=== PATIENT | female | born 1990 | race Caucasian/White ===

== ENCOUNTER 2017-12-09 15:14 | Emergency (ER) | payer BC, OTHER ==
[2017-12-09 15:29] VITALS: BP 124/67
--- NOTE | 2017-12-09 19:24 | ER Document Report ---
ED General - General Chief Complaint: Back Pain Stated Complaint: BACK PAIN Time Seen by Provider: 12/09/17 18:47 Mode of Arrival: Ambulatory Information source: Patient Notes: 27-year-old female presents to ED for complaint of pulled muscle in her back that the pain is getting worse abdominal pain right upper quadrant urinary symptoms frequency urgency burning vaginal discharge and pelvic pain. She states she pulled her muscle on went to the urgent care and put on Toradol and muscle relaxers which did not help her and she states that the back pain has been getting worse since then she has developed abdominal pain nausea vomiting pelvic pain and urinary symptoms. She states her last menstrual period was 2 weeks ago. TRAVEL OUTSIDE OF THE [place] IN LAST 30 DAYS: No - HPI Onset: Other - Back pain started last week the symptoms have started the last couple days. Onset/Duration: Gradual Quality of pain: Achy, Cramping, Sharp Severity: Severe Pain Level: 5 Associated symptoms: Body/muscle aches, Nausea, Vomiting, Other - Back pain pelvic pain abdominal pain frequency urgency and burning with urine vaginal discharge Relieved by: Denies Similar symptoms previously: Yes Recently seen / treated by doctor: No - Related Data Allergies/Adverse Reactions: amoxicillin Allergy (Verified 12/09/17 15:16) doxycycline [Doxycycline] Adverse Reaction (Verified 12/09/17 15:16) Past Medical History - General Information source: Patient - Social History Smoking Status: Never Smoker Cigarette use (# per day): No Chew tobacco use (# tins/day): No Smoking Education Provided: No Frequency of alcohol use: None Drug Abuse: None Occupation: [employer] Lives with: Family Family History: None Patient has suicidal ideation: No Patient has homicidal ideation: No - Past Medical History Cardiac Medical History: Reports: Hx Hypercholesterolemia Pulmonary Medical History: Reports: None Neurological Medical History: Reports: None Endocrine Medical History: Reports: Hx Diabetes Mellitus Type 2 Renal/ Medical History: Reports: None Malignancy Medical History: Reports: None GI Medical History: Reports: None Musculoskeltal Medical History: Reports Hx Muscle Spasm, Reports Hx Musculoskeletal Trauma Skin Medical History: Reports None Psychiatric Medical History: Reports: None Traumatic Medical History: Reports: None Infectious Medical History: Reports: None Surgical Hx: Negative Past Surgical History: Reports: None - Immunizations Immunizations up to date: Yes Hx Diphtheria, Pertussis, Tetanus Vaccination: Yes Review of Systems - Review of Systems Constitutional: Recent illness EENT: No symptoms reported Cardiovascular: No symptoms reported Respiratory: No symptoms reported Gastrointestinal: Abdominal pain, Nausea, Constipation Genitourinary: Burning, Frequency, Pain, Urgency Female Genitourinary: Vaginal discharge, Other Musculoskeletal: Back pain, Muscle pain Skin: No symptoms reported Hematologic/Lymphatic: No symptoms reported Neurological/Psychological: No symptoms reported -: Yes All other systems reviewed and negative Physical Exam - Vital signs Vitals: Temp Pulse Resp BP Pulse Ox 98.7 F 66 20 124/67 100 12/09/17 15:28 12/09/17 15:28 12/09/17 15:28 12/09/17 15:28 12/09/17 15:28 Interpretation: Normal - General General appearance: Appears well, Alert - HEENT Head: Normocephalic, Atraumatic Eyes: Normal Pupils: PERRL - Respiratory Respiratory status: No respiratory distress Chest status: Nontender Breath sounds: Normal Chest palpation: Normal - Cardiovascular Rhythm: Regular Heart sounds: Normal auscultation Murmur: No - Abdominal Inspection: Normal Distension: No distension Bowel sounds: Normal Tenderness: Tender - Right upper quadrant and pelvic pain Organomegaly: No organomegaly - Back Back: Normal, Tender - The entire back thoracic and lumbar, Vertebra tenderness. No: Deformity/step-off, CVA tenderness, Scars, Scoliosis, Wounds Notes: Denies any loss of control of bowel or bladder, denies any saddle anesthesia, denies any loss of control of lower extremities or sensation to the lower extremities. She states she pulled her back last week. - Extremities General upper extremity: Normal inspection, Nontender, Normal color, Normal ROM , Normal temperature General lower extremity: Normal inspection, Nontender, Normal color, Normal ROM , Normal temperature, Normal weight bearing. No: Andrey's sign - Neurological Neuro grossly intact: Yes Cognition: Normal Orientation: AAOx4 [place] Coma Scale Eye Opening: Spontaneous [place] Coma Scale Verbal: Oriented [place] Coma Scale Motor: Obeys Commands [place] Coma Scale Total: 15 Speech: Normal Motor strength normal: LUE, RUE, LLE, RLE Sensory: Normal - Psychological Associated symptoms: Normal affect, Normal mood - Skin Skin Temperature: Warm Skin Moisture: Dry Skin Color: Normal Course - Re-evaluation Re-evalutation: 12/09/17 19:41 Patient refusing ultrasound and labs as she states that she can only get treated for what workman's comp will cover which is the back injury. She is refusing any other care and will be signing out AGAINST MEDICAL ADVICE. I have explained to her that if she has a UTI it could get a lot of for and if she has pelvic inflammatory disease or gallbladder disease these could both get worse. Patient has stated she does not want to be treated by anything but the back injury. She stated she would like the back x-rays a Toradol shot and a prescription for a stronger muscle relaxer. I did have patient access going and explained to her that she could pay her deductible over a period of time not all at once and she stated no that she did not want to be treated or evaluated for anything except for the back injury. 12/09/17 20:56 X-rays discussed with patient and patient discharged home with prescription for Robaxin. Patient reaffirmed that she did not want the rest of the medical evaluation and treatment done. - Vital Signs Vital signs: Temp Pulse Resp BP Pulse Ox 98.7 F 66 20 124/67 100 12/09/17 15:28 12/09/17 15:28 12/09/17 15:28 12/09/17 15:28 12/09/17 15:28 - Diagnostic Test Radiology reviewed: Image reviewed, Reports reviewed Discharge - Discharge Clinical Impression: Muscle strain, Upper back pain Low back pain Qualifiers: Chronicity: acute Back pain laterality: bilateral Sciatica presence: without sciatica Qualified Code(s): M54.5 - Low back pain Condition: Stable Disposition: AGAINST MEDICAL ADVICE Additional Instructions: You are leaving AGAINST MEDICAL ADVICE LOW BACK PAIN: Three out of every four people will have an episode of disabling back pain during their lifetime. Most commonly the pain is due to straining of the muscles and ligaments in the low back. Usual treatment includes: (1) Rest on a firm surface. Avoid lying on your stomach. (2) Ice pack the painful area. After a few days, gentle heat may be used intermittently to relax the area, or ice packs can be continued. (3) Medication may be needed -- muscle relaxers and antiinflammatory medicines are commonly used. (4) As the back improves, exercises are prescribed to strengthen the back and abdominal muscles. Your doctor will advise you on the proper care for your back at each stage in your recovery. You may be better in a few days -- or healing may take several weeks. If new symptoms of a "herniated disc" (radiation of pain, numbness, or tingling down the back of the leg or weakness in the leg) occur, you should be re-examined. Further testing may be necessary. You complaint of upper abdominal pain, pelvic pain, nausea and vomiting, signs and symptoms of UTI, and pelvic discharge. When I ordered the labs and workup for these symptoms you refused them stating that all she went to be treated for was the back pain this time. I discussed with you the risk of not being evaluated and treated for vaginal discharge, urinary tract symptoms, and abdominal pain. I explained you that it could be all the way up to trouble having children later in life as well as gallbladder problems away up to and you decided you did not want any of these evaluations. I had the patient access come in and speak with you concerning that she could pay your co-pay on a payment plan and you still stated you did not want any of this done. You will be sent in your discharge papers is leaving AGAINST MEDICAL ADVICE. Toradol Injection You have been given an injection of ketorolac tromethamine (Toradol). This is an excellent, safe drug for pain control. It also has potent antiinflammatory action. You should have significant pain relief within about one hour. Toradol is not addicting and is non-sedating. It does not interfere with driving or work. Call or return if you develop itching, hives, shortness of breath, or rash. MUSCLE RELAXERS: Muscle relaxing medications are usually prescribed for acute muscle spasm or injury to the neck and back. They are often combined with antiinflammatory pain medication for increased relief. You may stop the muscle relaxer when the pain and stiffness have improved. Start the medication again if spasms recur. Muscle relaxers may cause drowsiness, especially with the first dose. Do not operate machinery or drive while under the effects of the medication. Most muscle relaxers last up to 24 hours. Do not combine the medication with alcohol. ICE PACKS: Apply ice packs frequently against the painful area. Many different schedules are recommended, such as "20 minutes on, 20 minutes off" or "one hour ice, two hours rest." If you need to work, you may need to go longer between ice treatments. You should plan to have the area ice packed AT LEAST one fourth of the time. The ice should be applied over the wrap, tape, or splint, or over a layer of cloth -- not directly against the skin. Some ice bags have a built-in cloth and can be put directly on the skin. WARM PACKS: After approximately two days, apply gentle heat (such as a heating pad or hot water bottle) for about 20 to 30 minutes about every two hours -- at least four times daily. Warmth and elevation will help you make a more rapid recovery , and will ease the pain considerably. Do not use HOT heat, and never apply heat for longer than 30 minutes. The continuous heat can invisibly damage skin and muscles -- even when no burn is seen on the surface. Damaged muscles can make you MORE sore. FOLLOW-UP CARE: If you have been referred to a physician for follow-up care, call the physician s office for an appointment as you were instructed or within the next two days. If you experience worsening or a significant change in your symptoms, notify the physician immediately or return to the Emergency Department at any time for re-evaluation. Prescriptions: Methocarbamol [Robaxin 500 mg Tablet] 500 mg PO BIDP PRN #20 tablet PRN Reason: Forms: Return to Work Referrals: ONUR SALOMON MD [Primary Care Provider] - Follow up as needed
[2017-12-09] MEDS ORDERED: METHOCARBAMOL 500 MG TABLET PO ONE (19:46)
[2017-12-09] MEDS ORDERED: KETOROLAC TROMETHAMINE 60 MG/2 ML SDV IM ONE (19:46)
--- NOTE | 2017-12-09 20:21 | RADIOLOGY REPORT (SQ) ---
EXAM DESCRIPTION: T SPINE AP/LAT COMPLETED DATE/TIME: 12/09/2017 8:04 pm REASON FOR STUDY: Back injury last week increasing pain COMPARISON: None. NUMBER OF VIEWS: Two views. TECHNIQUE: AP and lateral radiographic images acquired of the thoracic spine. LIMITATIONS: None. FINDINGS: MINERALIZATION: Normal. ALIGNMENT: Normal. No scoliosis. VERTEBRAE: No fracture or bone lesion. Maintained height, normal segmentation. DISCS: Mild disc disease at several levels with associated small osteophytes. HARDWARE: None in the spine. MEDIASTINUM AND SOFT TISSUES: Normal heart size and aortic contour. No soft tissue abnormality. VISUALIZED LUNG DIAZ: Clear. OTHER: No other significant finding. IMPRESSION: No fracture, bone lesion or malalignment. Mild spondylosis. TECHNICAL DOCUMENTATION: JOB ID: [id number] [employer]- All Rights Reserved
--- NOTE | 2017-12-09 20:22 | RADIOLOGY REPORT (SQ) ---
EXAM DESCRIPTION: L SPINE WHOLE COMPLETED DATE/TIME: 12/09/2017 8:04 pm REASON FOR STUDY: Back injury last week increasing pain COMPARISON: None. NUMBER OF VIEWS: Five views including obliques. TECHNIQUE: AP, lateral, oblique, and sacral radiographic images acquired of the lumbar spine. LIMITATIONS: None. FINDINGS: MINERALIZATION: Normal. SEGMENTATION: Mildly transitional S1 segment. ALIGNMENT: Normal. VERTEBRAE: Maintained height. No fracture or worrisome bone lesion. DISCS: Preserved height. No significant osteophytes or end plate irregularity. POSTERIOR ELEMENTS: Pedicles and facets are intact. No pars defect or posterior arch defects. HARDWARE: None in the spine. PARASPINAL SOFT TISSUES: Normal. PELVIS: Intact as visualized. No fractures or worrisome bone lesions. SI joints intact. OTHER: No other significant finding. IMPRESSION: NORMAL 5 VIEW LUMBAR SPINE. TECHNICAL DOCUMENTATION: JOB ID: [id number] [employer]- All Rights Reserved
== END 2017-12-09 21:27 | disposition left against medical advice (07) ==
LOC: ER 15:14
DX: M54.9 Dorsalgia, unspecified (principal); M54.6 Pain in thoracic spine; R10.11 Right upper quadrant pain; R30.0 Dysuria; R35.0 Frequency of micturition; E78.00 Pure hypercholesterolemia, unspecified; E11.9 Type 2 diabetes mellitus without complications; Z88.0 Allergy status to penicillin
CPT/HCPCS: 99283; 96372; 72110; 72070; J1885

== ENCOUNTER 2019-07-22 11:14 | Outpatient (CLI) | payer MEDICAID ==
--- NOTE | 2019-07-22 14:37 | Non Stress Test Report ---
Non Stress Test Datetime Report Generated by CPN: 07/22/2019 14:36 DEMOGRAPHIC Test Number: 1 EGA NST: 37.5 INDICATION Indication for Study: Ordered by Provider MONITORING Monitor Explained: Monitor Explained; Test Explained; Patient Verbalized Understanding Time on Monitor: 07/22/2019 13:46 Time off Monitor: 07/22/2019 14:06 NST Duration: 20 NST INTERVENTIONS NST Interventions: PO Hydration; Meal Given; Reposition Patient Physician Notified NST: PJones,CNM BABY A: [id number] BABY A Movement : Present Contraction Frequency : 0 FHR Baseline : 140 Accelerations : 15X15 Decelerations : None Variability : Moderate 6-25bpm NST Review: Meets Criteria for Reactive NST NST Review and Verified By : TMartin,RN NST Results: Reactive NST REPORT Report Trigger: Send Report
== END 2019-07-22 14:15 | disposition home or self-care (01) ==
LOC: LC 11:14
PROVIDERS: ATTEND Obstetrics & Gynecology Gynecology
PROC: 4A1HXCZ Monitoring of Products of Conception, Cardiac Rate, External Approach (ICD-10-PCS; principal; 2019-07-22)
DX: Z34.03 Encounter for supervision of normal first pregnancy, third trimester (principal)
CPT/HCPCS: 59025; 82962

== ENCOUNTER 2019-07-26 09:16 | Outpatient (CLI) | payer MEDICAID ==
[2019-07-26] MEDS ORDERED: ONDANSETRON HCL 8 MG TABLET PO ONE (10:05)
[2019-07-26] MEDS ORDERED: ONDANSETRON HCL 8 MG TABLET ONE (10:07)
[2019-07-26 10:08] LABS: APPEARANCE,URINE HAZY; BILIRUBIN,URINE NEGATIVE (NEGATIVE); COLOR,URINE COLORLESS; GLUCOSE, URINE NEGATIVE (NEGATIVE); KETONES,URINE NEGATIVE (NEGATIVE); LEUKOCYTE ESTERASE,URINE NEGATIVE (NEGATIVE); NITRITE,URINE NEGATIVE (NEGATIVE); PROTEIN,URINE NEGATIVE (NEGATIVE); UROBILINOGEN,URINE NEGATIVE mg/dL (<2.0)
[2019-07-26 10:11] LABS: URINE SPECIFIC GRAVITY 1.006
[2019-07-26 11:46] LABS: URINE AMPHETAMINES SCREEN NEGATIVE; URINE BARBITURATES SCREEN NEGATIVE; URINE BENZODIAZEPINES SCREEN NEGATIVE; URINE COCAINE SCREEN NEGATIVE; URINE MARIJUANA (THC) SCREEN NEGATIVE; URINE METHADONE SCREEN NEGATIVE; URINE PHENCYCLIDINE SCREEN NEGATIVE
== END 2019-07-26 10:44 | disposition home or self-care (01) ==
LOC: LC 09:16
PROVIDERS: ATTEND Obstetrics & Gynecology
PROC: 4A1HXCZ Monitoring of Products of Conception, Cardiac Rate, External Approach (ICD-10-PCS; principal; 2019-07-26)
DX: Z34.93 Encounter for supervision of normal pregnancy, unspecified, third trimester (principal)
CPT/HCPCS: 59025; 81005; 80307; S0119

== ENCOUNTER 2019-07-27 17:40 | Inpatient (IN) | payer MEDICAID ==
[2019-07-27] MEDS ORDERED: RINGERS SOLUTION,LACTATED 1,000 ML IV ONE (18:49)
[2019-07-27] MEDS ORDERED: DINOPROSTONE 10 MG VAGINAL INSERT.SR ONE (18:59)
[2019-07-27 19:27] LABS: URINE CREATININE 216.1 mg/dL (16-327); URINE PROTEIN 7.4 mg/dL (<12)
[2019-07-27 19:28] LABS: ABSOLUTE EOSINOPHILS # (AUTO) 0.1 10^3/uL (0.0-0.6); ABSOLUTE LYMPHOCYTES (AUTO) 1.6 10^3/uL (0.5-4.7); ABSOLUTE MONOCYTES (AUTO) 0.4 10^3/uL (0.1-1.4); ABSOLUTE NEUT (AUTO) 5.6 10^3/uL (1.7-8.2); BASOPHILS % (AUTO) 0.5 % (0-2); EOSINOPHILS % (AUTO) 1.2 % (0-6); HEMATOCRIT 22.1 % (36.0-47.0); LYMPHOCYTES % (AUTO) 20.4 % (13-45); MEAN CORPUSCULAR HEMOGLOBIN 23.7 pg (27.0-33.4); MEAN CORPUSCULAR HGB CONC 31.6 g/dL (32.0-36.0); MEAN CORPUSCULAR VOLUME 75 fl (80-97); MONOCYTES % (AUTO) 5.6 % (3-13); PLATELET COUNT 133 10^3/uL (150-450); RED BLOOD COUNT 2.94 10^6/uL (3.72-5.28); RED CELL DISTRIBUTION WIDTH 18.5 % (11.5-14.0); SEGMENTED NEUTROPHILS % (AUTO) 72.3 % (42-78); TOTAL CELLS COUNTED % (AUTO) 100 %; WHITE BLOOD COUNT 7.8 10^3/uL (4.0-10.5)
[2019-07-27 19:48] LABS: ALBUMIN 2.8 g/dL (3.5-5.0); ALKALINE PHOSPHATASE 137 U/L (38-126); ANION GAP 9 (5-19); ASPARTATE AMINO TRANSFERASE 22 U/L (14-36); BILIRUBIN,DIRECT 0.1 mg/dL (0.0-0.4); BILIRUBIN,TOTAL 0.3 mg/dL (0.2-1.3); BLOOD UREA NITROGEN 9 mg/dL (7-20); CARBON DIOXIDE 21 mmol/L (22-30); CHLORIDE 102 mmol/L (98-107); GLUCOSE 94 mg/dL (75-110); POTASSIUM 3.6 mmol/L (3.6-5.0); TOTAL PROTEIN 5.2 g/dL (6.3-8.2); URIC ACID 6.8 mg/dL (2.5-6.2)
[2019-07-27 20:29] LABS: URINE AMPHETAMINES SCREEN NEGATIVE; URINE BARBITURATES SCREEN NEGATIVE; URINE BENZODIAZEPINES SCREEN NEGATIVE; URINE COCAINE SCREEN NEGATIVE; URINE MARIJUANA (THC) SCREEN NEGATIVE; URINE METHADONE SCREEN NEGATIVE; URINE PHENCYCLIDINE SCREEN NEGATIVE
[2019-07-27] MEDS ORDERED: NORMAL SALINE 250 ML IV PRN (22:35)
[2019-07-28] MEDS ORDERED: OXYTOCIN 10 UNIT/ML VIAL ONE (05:16)
[2019-07-28] MEDS ORDERED: NALBUPHINE HCL INJ 10 MG/1 ML AMPULE ONE (05:16)
[2019-07-28] MEDS ORDERED: MISOPROSTOL 0.2 MG TABLET ONE (05:16)
[2019-07-28] MEDS ORDERED: LIDOCAINE 1% INJ-PF (10 MG/ML) 30 ML SDV ONE (05:16)
[2019-07-28] MEDS ORDERED: OXYTOCIN/NORMAL SALINE 20 UNIT/1,000 ML RTUINJ ONE ×2 (05:17→23:05)
--- NOTE | 2019-07-28 06:06 | Admission Physical ---
Datetime Report Generated by CPN: 07/28/2019 06:06 CURRENT ADMISSION Chief Complaint: Scheduled Induction of Labor Indication for Induction: Gestational HTN; Maternal Diabetes Admit Impression : Term, Intrauterine ; No Active Labor; Intact Membranes; Induction of Labor Admit Plan: Admit to Unit; Initiate Labor Induction Protocol ALLERGIES Medication Allergies: Yes Medication Allergies: Penicillins/Hives (07/27/2019); doxycycline (07/27/2019); sulfamethoxazole (07/27/2019); trimethoprim (07/27/2019); amoxicillin (07/27/2019) Latex: No Latex Allergies Food Allergies: None Environmental Allergies: None OBSTETRICAL HISTORY EDC: 08/07/2019 00:00 : 1 Para: 0 Gestational Diabetes: No Rh Sensitization: No Incompetent Cervix: No JENNIFER: No Infertility: No ART Treatment: No Uterine Anomaly: No IUGR: No Hx Previous C/S: No Macrosomia: No Hx Loss/Stillborn: No PIH: No Hx : No Placenta Previa/Abruption: No Depression/PP Depression: No PTL/PROM: No Post Hemorrhage: No Current Procedures: Ultrasound; NST Obstetrical History Comments: G1 - Current SEE RECORDS Alcohol: No Marijuana : No Cocaine: No Other Illicit Drugs: No Cigarettes: Never Smoker. [id number] MEDICAL HISTORY Diabetes: Yes Diabetes Type: Type II - NIDDM Blood Transfusion: No Pulmonary Disease (Asthma, TB): No Breast Disease: No Hypertension: No Project Architect Surgery: No Heart Disease: No Hosp/Surgery: Yes Autoimmune Disorder: No Anesthetic Complications: No Kidney Disease: No Abnormal Pap Smear: No Neuro/Epilepsy: No Psychiatric Disorders: No Other Medical Diseases: No Hepatitis/Liver Disease: No Significant Family History: No Varicosities/Phlebitis: No Trauma/Violence : No Thyroid Dysfunction: No Medical History Comments: appendix, gallbladder INFECTIOUS HISTORY Gonorrhea: No Genital Herpes: No Chlamydia: No Tuberculosis: No Syphilis: No Hepatitis: No HIV/AIDS Exposure: No Rash or Viral Illness: No HPV: No PHYSICAL EXAM General: Normal HEENT: Normal Neurologic: Normal Thyroid: Deferred Heart: Normal Lungs: Normal Breast: Deferred Back: Normal Abdomen: Normal Genitourinary Exam: Normal Extremities: Normal DTRs: Normal Pelvic Type: Adequate Vital Signs: Reviewed VAGINAL EXAM Dilatation: 1 Effacement: 50 Station: -3 Contraction Comments: rare MEMBRANES Membranes: Intact FETUS A EGA: 38.3 Monitoring: External US FHR- Baseline: 125 Variability: Moderate 6-25bpm Accelerations: 15X15 Decelerations: None FHR Category: Category I Presentation: Vertex Admit Comment: 28yo at 38+3ega with known poor control of Type II DM presented on 07/26 from [facility] with elevated BPs. Per [facility] recommendation to deliver on 07/26 or 07/27. HbA1c beginning of preg was 5.3 - today is 6.3. Also initial labs upon arrival today with hb/Hct 05/31. Review of records with this noted on 07/15 with patient with long standing anemia during not responsive to Iron po. She was not initiated on iron infusions but ferritin and Iron sat were very low on 07/15. Reviewed with patient that she would not likely tolerate delivery blood loss and recommended at least one unit of blood now then potentially more during or at delivery dependng on QBL/symptoms. Pt verbalized understanding. Plan cervidil/cooks/pitocin for IOL. Current Insulin regimen 6 units of NPH in am and Metformin was discontinued. Also noted was small to moderate feta VSD - ECHO report in chart. Admit and IOL and anticipate . EFW 7#8oz on 07/13. PLANS FOR LABOR AND DELIVERY Labor and Delivery: None Pain Management: Natural Other Pain Management Plans: Epidural if necessary Feeding Preference: Breast Benefit of Breast Feed Discussed: Yes Circumcision: Yes INFORMED CONSENT Informed Consent Obtained: Vaginal Delivery; Induction of Labor; Risks, Benefits and Alternatives Discussed Signature: Electronically signed by Stacie Rangel MD ([facility]) on 07/28/2019 at 06:05 with User ID: [email or web address]
[2019-07-28 07:12] LABS: ABSOLUTE LYMPHOCYTES (AUTO) 1.3 10^3/uL (0.5-4.7); ABSOLUTE MONOCYTES (AUTO) 0.5 10^3/uL (0.1-1.4); ABSOLUTE NEUT (AUTO) 8.2 10^3/uL (1.7-8.2); BASOPHILS % (AUTO) 0.1 % (0-2); EOSINOPHILS % (AUTO) 0.4 % (0-6); HEMATOCRIT 25.6 % (36.0-47.0); HEMOGLOBIN 8.1 g/dL (12.0-15.5); LYMPHOCYTES % (AUTO) 12.8 % (13-45); MEAN CORPUSCULAR HEMOGLOBIN 24.4 pg (27.0-33.4); MEAN CORPUSCULAR HGB CONC 31.9 g/dL (32.0-36.0); MEAN CORPUSCULAR VOLUME 77 fl (80-97); PLATELET COUNT 124 10^3/uL (150-450); RED BLOOD COUNT 3.34 10^6/uL (3.72-5.28); RED CELL DISTRIBUTION WIDTH 18.9 % (11.5-14.0); SEGMENTED NEUTROPHILS % (AUTO) 81.7 % (42-78); TOTAL CELLS COUNTED % (AUTO) 100 %
[2019-07-28] MEDS ORDERED: OXYTOCIN/NORMAL SALINE 0 UNIT/0 ML RTUINJ ONE (08:58)
[2019-07-28] MEDS ORDERED: ONDANSETRON HCL INJ/PF 4 MG/2 ML SDV ONE (09:25)
[2019-07-28] MEDS ORDERED: OXYTOCIN/NORMAL SALINE 20 UNIT/1,000 ML RTUINJ IV PRN ×2 (09:26→23:05)
[2019-07-28] MEDS ORDERED: ONDANSETRON HCL INJ/PF 4 MG/2 ML SDV IV ONE (09:27)
[2019-07-28] MEDS ORDERED: EPHEDRINE SULFATE INJ 50 MG/1 ML AMPULE ONE ×2 (10:31→10:53)
[2019-07-28] MEDS ORDERED: BUPIVACAINE HCL 0.25 % INJ/PF (2.5 MG/1 ML) 30 ML VIAL ONE (10:32)
[2019-07-28] MEDS ORDERED: FENTANYL/BUPIVACAINE/NS/PF 300 MCG/150 ML RTUINJ EPI ONE (10:32)
[2019-07-28] MEDS ORDERED: FUROSEMIDE INJ/PF 40 MG/4 ML SDV ONE (19:09)
[2019-07-28] MEDS ORDERED: FUROSEMIDE INJ/PF 20 MG/2 ML SDV IV ONE (19:10)
[2019-07-28] MEDS ORDERED: FUROSEMIDE INJ/PF 40 MG/4 ML SDV IV ONE (19:45)
[2019-07-28] MEDS ORDERED: CLINDAMYCIN 900 MG/D5W RTU 900 MG/50 ML RTUPB IV ONE ×2 (19:46→19:49)
[2019-07-28] MEDS ORDERED: ACETAMINOPHEN WITH CODEINE #3 TABLET PO PRN ×2 (23:05)
[2019-07-28] MEDS ORDERED: DIBUCAINE 1% OINTMENT 56 GM TP PRN (23:05)
[2019-07-28] MEDS ORDERED: DIPH/PERTUSS(ACELL)/TETANUS VAC/PF 0.5 ML SYR (>=10YO) IM PRN (23:05)
[2019-07-28] MEDS ORDERED: ZOLPIDEM TARTRATE 5 MG TABLET PO PRN (23:05)
[2019-07-28] MEDS ORDERED: BENZOCAINE/MENTHOL AEROSOL SPRAY 56 ML TOP PRN (23:05)
--- NOTE | 2019-07-29 00:02 | Delivery Summary ---
Del Sum A-C Datetime Report Generated by CPN: 07/29/2019 00:01 DELIVERY PERSONNEL DELIVERY PERSONNEL: [id number] Delivery Doctor:: Kelsey Felder MD Labor and Delivery Nurse:: Rachael Acharya RN Nursery Nurse:: Wendy Servin RN MSN Enrollment Specialist/DIRECTOR DATA MANAGEMENT: Amanada Antonio VICE PRESIDENT BUSINESS DEVELOPMENT MATERNAL INFORMATION Delivery Anesthesia: Epidural Medications After Delivery: Pitocin Drip 20 Units/1000ml NSS Estimated Blood Loss (ml): 150 Delivery QBL: 150 Delivery QBL Comment: 150 ml Maternal Complications: None Provider Comments: of a viable male at 2232 w/ an OA w/loose nuchal cord x 1 presentation; APGARS 8, 9; 2nd deg midline vag lac LABOR SUMMARY EDC: 08/07/2019 00:00 No. Babies in Womb: 1 Attempted: No Labor Anesthesia: Epidural LABOR INFORMATION Reason for Induction: Maternal Diabetes Onset of Labor: 07/28/2019 16:26 Complete Dilatation: 07/28/2019 22:25 Cervical Ripening Agents: Cervidil Oxytocin: Induction Group B Beta Strep: negative Antibiotics # of Doses: 1 Antibiotics Time of Last Dose: clindamycin Name of Antibiotic Given: 1999 Steroids Given: None Reason Steroids Not Administered: Not Applicable MEMBRANES Membranes Rupture Method: Spontaneous Rupture of Membranes: 07/28/2019 05:19 Length of Rupture (hr): 17.22 Amniotic Fluid Color: Clear Amniotic Fluid Amount: Moderate Amniotic Fluid Odor: Normal STAGES OF LABOR Stage 1 hr: 5 Stage 1 min: 59 Stage 2 hr: 0 Stage 2 min: 7 Stage 3 hr: 0 Stage 3 min: 3 Total Time in Labor hr: 6 Total Time in Labor min: 9 VAGINAL DELIVERY Episiotomy: None Laceration #1: Vaginal Laceration Extension #1: Second Degree Laceration Repair: Yes Laceration Repair Note: 2nd degree midling lac repaired with 2-0 Vicryl Sponge Count Correct: Yes Sharps Count Correct: Yes CSECTION DELIVERY Primary Indication: N/A Secondary Indication: N/A CSection Incidence: N/A Labor: N/A Elective: N/A CSection Incision: N/A BABY A INFORMATION Infant Delivery Date/Time: 07/28/2019 22:32 Method of Delivery: Vaginal Born in Route : No : N/A Forceps: N/A Vacuum Extraction: N/A Shoulder Dystocia : No PRESENTATION/POSITION BABY A Presentation: Cephalic Cephalic Presentation: Vertex Vertex Position: OA Breech Presentation: N/A PLACENTA INFORMATION BABY A Placenta Delivery Time : 07/28/2019 22:35 Placenta Method of Delivery: Spontaneous Placenta Status: Delivered SCORES BABY A Heart Rate 1 min: >100 bpm Resp Effort 1 min: Good Cry Reflex Irritability 1 min: Cough or Sneeze or Pulls Away Muscle Tone 1 min: Active Motion Color 1 min: Blue/Pale Resuscitation Effort 1 min: Tactile Stimulation SCORE 1 MIN: 8 Heart Rate 5 min: >100 bpm Resp Effort 5 min: Good Cry Reflex Irritability 5 min: Cough or Sneeze or Pulls Away Muscle Tone 5 min: Active Motion Color 5 min: Body [place], Extremities Blue Resuscitation Effort 5 min: Tactile Stimulation SCORE 5 MIN: 9 INFANT INFORMATION BABY A Gestational Age at Delivery: 38.4 Gestational Status: Early Term- 37- 38.6 Weeks Infant Outcome : Liveborn Infant Condition : Stable Infant Sex: Male IDENTIFICATION BABY A Infant Verification Date/Time: 07/28/2019 23:17 ID Band Number: [id number] Mother's Name Verified: Yes RN Verifying Infant: NDoyle RN, EJilek RN WEIGHT/LENGTH BABY A Infant Birthweight (gm): 3754 Weight (lb): 8 Infant Weight (oz): 4 Length (in): 21.25 Infant Length (cm): 53.98 CORD INFORMATION BABY A Nuchal Cord : Around Neck x1, Loose Cord Blood Taken: Yes-For Storage (Mom's Blood type +) Suction: Mouth; Nose ASSESSMENT BABY A Skin to Skin: Yes Transferred To: Remains with Mother BABY B INFORMATION : N/A SIGNATURES Signature: with User ID: [email or web address]
[2019-07-29] MEDS ORDERED: IBUPROFEN 800 MG TABLET ONE (00:03)
[2019-07-29] MEDS ORDERED: GLUCAGON,HUMAN RECOMB 1 MG INJ IM PRN (05:30)
[2019-07-29] MEDS ORDERED: DEXTROSE 50%-WATER SYRINGE 12.5 GM/25 ML DOSE IV PRN (05:30)
[2019-07-29] MEDS ORDERED: DEXTROSE 40% GEL 15 GM TUBE X 2 PO PRN (05:30)
[2019-07-29] MEDS ORDERED: DEXTROSE 50%-WATER SYRINGE 25 GM/50 ML DOSE IV PRN (05:30)
[2019-07-29] MEDS ORDERED: DEXTROSE 40% GEL 15 GM TUBE PO PRN (05:30)
[2019-07-29] MEDS: IBUPROFEN 800 MG TABLET PO SCH ×3 (07:13→22:58)
[2019-07-29] MEDS ORDERED: INSULIN REG, HUMAN 100 UNIT/ML 3 ML VIAL (PYX) SUBCUT SCH (08:00)
[2019-07-29 08:34] LABS: HEMATOCRIT 23.4 % (36.0-47.0); MEAN CORPUSCULAR HEMOGLOBIN 24.4 pg (27.0-33.4); MEAN CORPUSCULAR HGB CONC 31.7 g/dL (32.0-36.0); MEAN CORPUSCULAR VOLUME 77 fl (80-97); PLATELET COUNT 109 10^3/uL (150-450); RED BLOOD COUNT 3.05 10^6/uL (3.72-5.28); RED CELL DISTRIBUTION WIDTH 18.7 % (11.5-14.0); WHITE BLOOD COUNT 14.6 10^3/uL (4.0-10.5)
[2019-07-29 08:38] LABS: HEMOGLOBIN 7.4 g/dL (12.0-15.5)
[2019-07-29] MEDS ORDERED: IRON SUCROSE COMPLEX INJ/PF 100 MG/5 ML SDV IV ONE ×2 (09:00→11:30)
[2019-07-29] MEDS: DOCUSATE SODIUM 100 MG CAPSULE PO SCH ×2 (10:57→18:32)
[2019-07-29] MEDS: PRENATAL VITAMIN W DHA CAPSULE PO SCH (10:57)
[2019-07-29] MEDS: SENNOSIDES/DOCUSATE 8.6-50 MG 1 EACH TABLET PO SCH (10:57)
[2019-07-29] MEDS: FERROUS SULFATE 325 MG TABLET PO SCH ×2 (10:58→18:32)
--- NOTE | 2019-07-29 12:49 | PDOC PROGRESS REPORT ---
Subjective-OB Progress Note for:: 07/29/19 Subjective: reports bleeding slowing, pain controlled with current meds, denies needs, denies any sx of anemia Physical Exam (OB) Vital Signs: Temp Pulse Resp BP Pulse Ox 97.6 F 46 L 16 121/74 96 07/29/19 07:28 07/29/19 07:28 07/29/19 07:28 07/29/19 07:28 07/29/19 07:28 Intake & Output 07/28/19 07/29/19 07/30/19 06:59 06:59 06:59 Intake Total 300 240 Output Total 600 350 Balance 300 -360 -350 Weight 124.9 kg - Abdomen Description: Soft Hernia Present: No Fundal Description: Firm Fundal Height: u/u - u/2 - Abdominal Distension: No distension Tenderness: Nontender - Extremities Lower extremities: Andrey's sign - neg Calf: Normal, Nontender Objective-Diagnostic Laboratory: 07/29/19 07:42 07/27/19 19:09 07/29/19 07:42 WBC 14.6 H RBC 3.05 L Hgb 7.4 L Hct 23.4 L MCV 77 L MCH 24.4 L MCHC 31.7 L RDW 18.7 H Plt Count 109 L Assessment and Plan(PN) - Assessment and Plan (1) Normal vaginal delivery Is this a current diagnosis for this admission?: Yes (2) Obstetrical laceration Is this a current diagnosis for this admission?: Yes - Time Spent with Patient Time with patient: Less than 15 minutes Medications reviewed and adjusted accordingly: Yes - Disposition Anticipated Discharge: Home Within: within 24 hours
[2019-07-30] MEDS: IBUPROFEN 800 MG TABLET PO SCH (05:31)
[2019-07-30] MEDS: SENNOSIDES/DOCUSATE 8.6-50 MG 1 EACH TABLET PO SCH (10:01)
[2019-07-30] MEDS: DOCUSATE SODIUM 100 MG CAPSULE PO SCH (10:01)
[2019-07-30] MEDS: FERROUS SULFATE 325 MG TABLET PO SCH (10:01)
[2019-07-30] MEDS: PRENATAL VITAMIN W DHA CAPSULE PO SCH (10:01)
--- NOTE | 2019-07-30 10:48 | PDOC DISCHARGE SUMMARY ---
Final Diagnosis Discharge Date: 07/30/19 - Final Diagnosis (1) Anemia, iron deficiency Is this a current diagnosis for this admission?: Yes (2) Gestational thrombocytopenia Is this a current diagnosis for this admission?: Yes (3) Normal vaginal delivery Is this a current diagnosis for this admission?: Yes (4) Obstetrical laceration Is this a current diagnosis for this admission?: Yes (5) Type II diabetes mellitus Is this a current diagnosis for this admission?: Yes Discharge Data - Discharge Medication Home Medications: Vit No.130/Iron/Folic [ Vitamins] 1 each PO DAILY 07/22/19 Insulin NPH Hum/Reg Insulin Hm [Relion Novolin 70-30 Vial] 6 unit SQ [id number] 07/27/19 Iron 18 mg PO DAILY 07/27/19 Reason(s) for Admission: Induction of Labor, PIH, Other Admission Note: poorly controlled DM Procedures: NST Intrapartum Procedure(s): Spontaneous Vaginal Delivery Complication(s): Laceration-Perineal Laceration-Degree: 2nd - Diagnosis Test Laboratory: Temp Pulse Resp BP Pulse Ox 97.6 F 55 L 16 119/61 98 07/30/19 07:35 07/30/19 07:35 07/30/19 07:35 07/30/19 07:35 07/30/19 07:35 07/27/19 07/27/19 07/28/19 17:52 19:09 06:49 RBC 2.94 L 3.34 L Hgb 7.0 L 8.1 L Hct 22.1 L 25.6 L Urine Opiates Screen NEGATIVE 07/29/19 07:42 RBC 3.05 L Hgb 7.4 L Hct 23.4 L Urine Opiates Screen - Discharge information/Instructions Discharge Activity: Balance Activity w/Rest, Pelvic Rest Discharge Diet: Regular Disposition: HOME, SELF-CARE Follow up with: [facility] in: 4, Weeks
[2019-07-30 13:01] VITALS: BP 123/53
== END 2019-07-30 18:05 | disposition home or self-care (01) | DRG 806 ==
LOC: LR 17:40 → 2S 07-29 00:45
PROVIDERS: ADMIT Student in an Organized Health Care Education/Training Program; ATTEND Student in an Organized Health Care Education/Training Program
PROC: 10E0XZZ Delivery of Products of Conception, External Approach (ICD-10-PCS; principal; 2019-07-27)
PROC: 0KQM0ZZ Repair Perineum Muscle, Open Approach (ICD-10-PCS; 2019-07-27)
DX: O13.4 Gestational [pregnancy-induced] hypertension without significant proteinuria, complicating childbirth (principal); O99.12 Other diseases of the blood and blood-forming organs and certain disorders involving the immune mechanism complicating childbirth; Z37.0 Single live birth; O24.12 Pre-existing type 2 diabetes mellitus, in childbirth; O69.81X0 Labor and delivery complicated by cord around neck, without compression, not applicable or unspecified; O70.1 Second degree perineal laceration during delivery; O99.02 Anemia complicating childbirth; D69.59 Other secondary thrombocytopenia; E11.9 Type 2 diabetes mellitus without complications; Z88.0 Allergy status to penicillin; Z79.4 Long term (current) use of insulin; Z3A.38 38 weeks gestation of pregnancy; Z90.49 Acquired absence of other specified parts of digestive tract
CPT/HCPCS: 36415; 36430; 80053; 80307; 82570; 82962; 83036; 83615; 84156; 84550; 85025; 85027; 86592; 86850; 86900; 86901; 86920; 94760; J1756; J1940; J2300; J2405; J2590; J3010; J3490; P9016